=== PATIENT | female | born 1995 | race Two or more races ===

== ENCOUNTER 2024-10-21 14:36 | Emergency (ER) | payer OTHER ==
[~2024-10-21] VITALS: Ht 167.6 cm; Wt 83.9 kg
[2024-10-21 15:13] VITALS: BP 123/74; O2SAT 98
== END 2024-10-21 17:28 | disposition home or self-care (01) ==
LOC: ER 14:36
DX: M25.571 Pain in right ankle and joints of right foot (principal); W17.89XA Other fall from one level to another, initial encounter; Y93.89 Activity, other specified; Y92.830 Public park as the place of occurrence of the external cause